=== PATIENT | female | born 1960 | race Caucasian/White ===

== ENCOUNTER 2021-10-06 10:54 | Emergency (ER) | payer OTHER ==
[2021-10-06 12:16] LABS: HEMOGLOBIN 12.5 gm/dl (12.3-15.3); RED BLOOD COUNT 3.94 M/UL (4.00-5.10); WHITE BLOOD COUNT 7.5 K/UL (4.5-11.0)
[2021-10-06 12:53] LABS: BUN/CREATININE RATIO 6 (0-10)
[2021-10-06] MEDS ORDERED: LISINOPRIL20 MG PO (15:12)
== END 2021-10-06 15:38 | disposition home or self-care (01) ==
LOC: ER1 10:54
DX: I10 Essential (primary) hypertension (principal); R29.898 Other symptoms and signs involving the musculoskeletal system; J45.909 Unspecified asthma, uncomplicated; Z90.710 Acquired absence of both cervix and uterus; Z88.8 Allergy status to other drugs, medicaments and biological substances
CPT/HCPCS: 71045; 80053; 82550; 82553; 84484; 85025; 93005; 99284

== ENCOUNTER 2021-10-19 13:15 | Emergency (ER) | payer OTHER ==
[~2021-10-19 13:15] MED LIST: LISINOPRIL20 MG PO
[2021-10-19 14:28] LABS: HEMOGLOBIN 12.5 gm/dl (12.3-15.3); RED BLOOD COUNT 3.87 M/UL (4.00-5.10); WHITE BLOOD COUNT 5.5 K/UL (4.5-11.0)
[2021-10-19 14:45] LABS: BUN/CREATININE RATIO 12 (0-10)
== END 2021-10-19 17:50 | disposition home or self-care (01) ==
LOC: ER1 13:15
PROVIDERS: Family Medicine
DX: E87.1 Hypo-osmolality and hyponatremia (principal); F17.210 Nicotine dependence, cigarettes, uncomplicated; J44.9 Chronic obstructive pulmonary disease, unspecified; I10 Essential (primary) hypertension; Z90.710 Acquired absence of both cervix and uterus; Z88.8 Allergy status to other drugs, medicaments and biological substances
CPT/HCPCS: 80053; 81001; 82533; 82570; 83935; 84300; 84439; 84443; 85025; 96360; 99284